=== PATIENT | male | born 1980 | race American Indian/Alaskan Native ===

== ENCOUNTER 2016-10-22 19:36 | Emergency (ER) | payer MEDICAID ==
[2016-10-22 19:48] VITALS: BP 110/58; PULSE 60; RESP 18; TEMP 97.8; O2SAT 97
--- NOTE | 2016-10-22 20:29 | C.PDOC ---
History Of Present Illness Albaro Mckeon, a 36 year old male, who has a past medical history of back pain presents to the ED for a medication refill. The patient states that he usually takes gabapentin for his back pain but his last dose was in may. He states that he has no medical complaints and he is only here for a medication refill. Time Seen by Provider: 10/22/16 19:57 Chief Complaint (Nursing): Med Refill History Per: Patient History/Exam Limitations: no limitations Onset/Duration Of Symptoms: Days Current Symptoms Are (Timing): Still Present Past Medical History Reviewed: Historical Data, Nursing Documentation, Vital Signs Vital Signs: Last Vital Signs Temp 97.8 F 10/22/16 19:45 Pulse 60 10/22/16 19:45 Resp 18 10/22/16 19:45 BP 110/58 L 10/22/16 19:45 Pulse Ox 97 10/22/16 20:47 - Medical History PMH: Back Problems Surgical History: No Surg Hx Family History: States: Unknown Family Hx - Social History Hx Alcohol Use: No Hx Substance Use: No - Immunization History Hx Tetanus Toxoid Vaccination: No Hx Influenza Vaccination: Yes Hx Pneumococcal Vaccination: No Review Of Systems Musculoskeletal: Positive for: Back Pain Physical Exam - Physical Exam Appears: Well, Non-toxic, No Acute Distress Skin: Normal Color, Warm, Dry, No Rash Head: Atraumatic, Normacephalic, No Tenderness, No Swelling Eye(s): bilateral: Normal Inspection, PERRL, EOMI Oral Mucosa: Moist Neck: No Midline Cervical Tenderness, No Paracervical Tenderness Chest: Symmetrical, No Deformity, No Tenderness Cardiovascular: Rhythm Regular, No Murmur Respiratory: Normal Breath Sounds, No Rales, No Rhonchi, No Wheezing Gastrointestinal/Abdominal: Soft, No Tenderness Back: Normal Inspection, No CVA Tenderness, No Vertebral Tenderness, No Muscle Spasm, No Paraspinal Tenderness Neurological/Psych: Oriented x3, Normal Speech, Normal Motor Gait: Steady ED Course And Treatment O2 Sat by Pulse Oximetry: 97 (RA) Pulse Ox Interpretation: Normal Medical Decision Making Medical Decision Making: Patient with normal exam, will give Rx Disposition - Disposition Referrals: Bashir Hampton MD [Staff Provider] - Harshil An MD [Staff Provider] - Segundo Ross MD [Staff Provider] - Disposition: HOME/ ROUTINE Disposition Time: 20:31 Condition: GOOD Additional Instructions: Follow up with the medical doctor within 1-2 days. Return if worsened. Prescriptions: Gabapentin 300 mg PO BID #40 capsule Instructions: Medicine Refill (ED) Forms: [employer] (Guatemalan) - Clinical Impression Clinical Impression: Review of medication - Scribe Statement The provider has reviewed the documentation as recorded by the Gordoibsantosh Spann All medical record entries made by the Gordoibe were at my direction and personally dictated by me. I have reviewed the chart and agree that the record accurately reflects my personal performance of the history, physical exam, medical decision making, and the department course for this patient. I have also personally directed, reviewed, and agree with the discharge instructions and disposition.
== END 2016-10-22 20:43 | disposition home or self-care (01) ==
LOC: C.ER 19:36
DX: Z76.0 Encounter for issue of repeat prescription (principal); M54.9 Dorsalgia, unspecified

== ENCOUNTER 2016-12-12 18:43 | Emergency (ER) | payer MEDICAID ==
--- NOTE | 2016-12-12 20:08 | C.PDOC ---
History Of Present Illness 36 year old male who presents to the ER with a complaint of left ear pain for the past 3 days. Denies fever, chills, cough, or drainage. Time Seen by Provider: 12/12/16 19:42 Chief Complaint (Nursing): ENT Problem History Per: Patient History/Exam Limitations: None Onset/Duration Of Symptoms: Days Current Symptoms Are (Timing): Still Present Quality (Ear): Pain W/Touch. denies: Discharge, Foreign Body Symptoms Have Been: Continuous Past Medical History Reviewed: Historical Data, Nursing Documentation, Vital Signs Vital Signs: Last Vital Signs Temp 98.5 F 12/12/16 20:22 Pulse 68 12/12/16 20:22 Resp 18 12/12/16 20:22 BP 112/62 12/12/16 20:22 Pulse Ox 100 12/12/16 21:19 - Medical History PMH: Back Problems Surgical History: No Surg Hx Family History: States: Unknown Family Hx - Social History Hx Alcohol Use: No Hx Substance Use: No - Immunization History Hx Tetanus Toxoid Vaccination: No Hx Influenza Vaccination: No Hx Pneumococcal Vaccination: No Review Of Systems Constitutional: Negative for: Fever, Chills ENT: Positive for: Ear Pain. Negative for: Ear Discharge Respiratory: Negative for: Cough Physical Exam - Physical Exam Appears: Non-toxic, No Acute Distress Skin: Normal Color, Warm, Dry Head: Atraumatic, Normacephalic Ear(s): Bilateral: TM Obscured By Wax (Left ear debris, left tragus tenderness, TM not well visualized) Oral Mucosa: Moist Throat: Normal, No Erythema, No Exudate Neck: Normal, Supple Chest: Symmetrical Cardiovascular: Rhythm Regular Respiratory: Normal Breath Sounds, No Rales, No Rhonchi, No Wheezing Neurological/Psych: Oriented x3, Normal Speech, Normal Cognition ED Course And Treatment O2 Sat by Pulse Oximetry: 100 (Room air) Pulse Ox Interpretation: Normal Medical Decision Making Medical Decision Making: Motrin administered. Patient given Rx for antibiotics and instructed to follow up with clinic. Disposition Counseled Patient/Family Regarding: Diagnosis, Need For Followup, Rx Given - Disposition Referrals: [facility] [Outside] [facility] [Outside] Disposition: HOME/ ROUTINE Disposition Time: 20:06 Condition: STABLE Additional Instructions: Take antibiotics as prescribed. Tylenol or Motrin for pain. Follow up in medical Clinic in a few days, call for an appointment. Prescriptions: Amoxicillin [Amoxil 500 mg Cap] 500 mg PO TID #21 cap Instructions: Otitis Externa (ED) Forms: [employer] (Swiss) - Clinical Impression Clinical Impression: Left otitis media, Left otitis externa - Scribe Statement The provider has reviewed the documentation as recorded by the Scribe Nando Deal All medical record entries made by the Gordoibe were at my direction and personally dictated by me. I have reviewed the chart and agree that the record accurately reflects my personal performance of the history, physical exam, medical decision making, and the department course for this patient. I have also personally directed, reviewed, and agree with the discharge instructions and disposition.
[2016-12-12 20:22] VITALS: BP 112/62; PULSE 68; RESP 18; TEMP 98.5
[2016-12-12 21:18] VITALS: O2SAT 100
== END 2016-12-12 20:24 | disposition home or self-care (01) ==
LOC: C.ER 18:43
DX: H66.92 Otitis media, unspecified, left ear (principal); H60.92 Unspecified otitis externa, left ear

== ENCOUNTER 2016-12-19 17:56 | Emergency (ER) | payer MEDICAID ==
[2016-12-19 18:16] VITALS: BP 108/62; PULSE 60; RESP 20; TEMP 98; O2SAT 99
--- NOTE | 2016-12-19 18:47 | C.PDOC ---
History Of Present Illness 36 y/o male presents to ED with complaints of persistent left ear pain. (+) ear discharge . Patient states he was seen at ED 1 week ago and given antibiotics for ear infection but did not receive ear drops. Patient denies fever, chills, headache, neck pain, sore throat, cough or any other complaints at this time. Time Seen by Provider: 12/19/16 18:20 Chief Complaint (Nursing): ENT Problem History Per: Patient History/Exam Limitations: None Onset/Duration Of Symptoms: Days, Persistent Current Symptoms Are (Timing): Still Present Past Medical History Reviewed: Historical Data, Nursing Documentation, Vital Signs Vital Signs: Last Vital Signs Temp 98 F 12/19/16 18:13 Pulse 60 12/19/16 18:13 Resp 20 12/19/16 18:13 BP 108/62 12/19/16 18:13 Pulse Ox 99 12/19/16 19:17 - Medical History PMH: Back Problems Surgical History: No Surg Hx Family History: States: No Known Family Hx - Social History Hx Alcohol Use: No Hx Substance Use: No - Immunization History Hx Tetanus Toxoid Vaccination: Yes Hx Influenza Vaccination: No Hx Pneumococcal Vaccination: No Review Of Systems Constitutional: Negative for: Fever, Chills ENT: Positive for: Ear Pain, Ear Discharge Respiratory: Negative for: Cough, Shortness of Breath Skin: Negative for: Rash Neurological: Negative for: Weakness, Numbness Physical Exam - Physical Exam Appears: Non-toxic, No Acute Distress Skin: Normal Color, Warm, Dry, No Rash Head: Atraumatic, Normacephalic Eye(s): bilateral: Normal Inspection, EOMI Ear(s): Left: Other (Tragus Tenderness, +exudate to ear canal. (-) Mastoid Tenderness (-) no perforated TM), Bilateral: TM Erythema (Mild erythem to right ear) Nose: Normal Oral Mucosa: Moist Throat: Normal, No Erythema, No Exudate Neck: Normal ROM, Supple Chest: Symmetrical Cardiovascular: Rhythm Regular Respiratory: Normal Breath Sounds, No Accessory Muscle Use, No Rales, No Rhonchi , No Wheezing Neurological/Psych: Oriented x3, Normal Speech ED Course And Treatment O2 Sat by Pulse Oximetry: 99 (RA) Pulse Ox Interpretation: Normal Progress Note: Instructed to follow up with ENT in 1-2 days. Disposition - Disposition Referrals: Сергей Mancia MD [Staff Provider] - Disposition: HOME/ ROUTINE Disposition Time: 18:44 Condition: STABLE Additional Instructions: Take probiotics. Follow up with referral physician in 1-2 days without fail for further evaluation. Take medications as prescribed. Return to the emergency department at any time if symptoms persist or worsen. 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 - Scribe Statement The provider has reviewed the documentation as recorded by the Gordoibsantosh Figueroa All medical record entries made by the Gordoibsanotsh were at my direction and personally dictated by me. I have reviewed the chart and agree that the record accurately reflects my personal performance of the history, physical exam, medical decision making, and the department course for this patient. I have also personally directed, reviewed, and agree with the discharge instructions and disposition.
== END 2016-12-19 18:55 | disposition home or self-care (01) ==
LOC: C.ER 17:56
DX: H60.92 Unspecified otitis externa, left ear (principal)